=== PATIENT | female | born 1995 | race Caucasian/White ===

== ENCOUNTER 2017-06-14 16:08 | Emergency (ER) | payer OTHER ==
[~2017-06-14] VITALS: Ht 165.1 cm; Wt 68.0 kg
--- NOTE | 2017-06-14 16:20 | NUR ---
at the bedside
--- NOTE | 2017-06-14 16:25 | NUR ---
prescriptions and homegoing instructions given. pt is discharged
[2017-06-14 16:28] VITALS: BP 130/70
== END 2017-06-14 16:31 | disposition home or self-care (01) ==
LOC: ER 16:09
DX: H00.014 Hordeolum externum left upper eyelid (principal)
CPT/HCPCS: A4663

== ENCOUNTER 2018-01-07 11:03 | Emergency (ER) | payer OTHER ==
[~2018-01-07] VITALS: Ht 165.1 cm; Wt 68.0 kg
[2018-01-07 11:44] LABS: *BILIRUBIN,URIN NEGATIVE (NEGATIVE); *BLOOD, URINE NEGATIVE (NEGATIVE); *CLARITY,URINE CLEAR (CLEAR); *COLOR,URINE LIGHT YELLOW (YELLOW); *KETONES,URINE NEGATIVE (NEGATIVE); *PROTEIN,URINE NEGATIVE (NEGATIVE); *UROBILINOGEN,URINE 0.2 E.U./dl (NORMAL); LEUKOCYTE ESTERASE ,URINE 2+ (NEGATIVE); NITRITE, URINE NEGATIVE (NEGATIVE); PH,URINE 7.5 (5.0-8.0); UGLUCOSE NEGATIVE (NEGATIVE)
[2018-01-07] MEDS ORDERED: ONDANSETRON ODT 4 MG TAB.RAPDIS SL ONE (11:45)
[2018-01-07] MEDS ORDERED: CEFTRIAXONE 500 MG VIAL IM ONE (11:45)
[2018-01-07] MEDS ORDERED: IBUPROFEN 800 MG TABLET PO ONE (11:45)
[2018-01-07] MEDS ORDERED: AZITHROMYCIN 250 MG TABLET PO ONE (11:45)
[2018-01-07 11:47] LABS: *URINE HCG, QUAL POSITIVE (NEGATIVE)
[2018-01-07] MEDS ORDERED: CEFTRIAXONE 500 MG VIAL ONE (11:50)
[2018-01-07] MEDS ORDERED: ONDANSETRON ODT 4 MG TAB.RAPDIS ONE (11:50)
[2018-01-07] MEDS ORDERED: AZITHROMYCIN 250 MG TABLET ONE (11:50)
[2018-01-07] MEDS ORDERED: IBUPROFEN 800 MG TABLET ONE (11:50)
[2018-01-07] MEDS ORDERED: LIDOCAINE HCL 2% 20 ML VIAL ONE (11:50)
[2018-01-07 11:51] LABS: RBC,URINE 0-3 /HPF (0-3)
[2018-01-07 11:52] LABS: BACTERIA,URINE FEW /HPF (NONE SEEN); SQUAMOUS EPITHELIAL CELL,UR MODERATE /HPF (NONE SEEN)
[2018-01-07] MEDS ORDERED: LIDOCAINE HCL 1% 20 ML VIAL ONE (11:56)
--- NOTE | 2018-01-07 12:04 | NUR ---
LABS COMPLETED,MEDS ADMINISTERED, OPELVIC EXAM DONE. PT PRESENTLY AWAITING FOR [facility].
--- NOTE | 2018-01-07 12:54 | NUR ---
AMANDA TUCKER AT THE BEDSIDE.
--- NOTE | 2018-01-07 14:05 | NUR ---
MSE COMPLETED, PT D/C'D HOME, ACI/RX X2 GIVEN. PT GOT [id number] AND AMBULATESD W/O DIFF/TOOK ALL BELONGINGS.
[2018-01-07 14:16] VITALS: BP 120/68
[2018-01-11 13:07] LABS: *GC NAA Negative (Negative); *TRIC.VAG. NAA Negative (Negative)
== END 2018-01-07 14:05 | disposition home or self-care (01) ==
LOC: ER 11:03
DX: N71.9 Inflammatory disease of uterus, unspecified (principal)
CPT/HCPCS: 84703; 87491; A4663; J0696; J3490; Q0144; Q0162

== ENCOUNTER 2019-10-19 21:39 | Emergency (ER) | payer MEDICAID, OTHER ==
[~2019-10-19] VITALS: Ht 165.1 cm; Wt 63.5 kg
--- NOTE | 2019-10-19 22:50 | NUR ---
Dr. Lacey at bedside for MSE.
[2019-10-19] MEDS ORDERED: OXYCODONE/APAP 5-325 MG TABLET PO ONE (23:00)
[2019-10-19] MEDS ORDERED: OXYCODONE/APAP 5-325 MG TABLET ONE (23:17)
[2019-10-19 23:28] LABS: BASOPHILS % (AUTO) 0.3 % (0.0-2.0); EOSINOPHILS # (AUTO) 0.2 K/uL (0.0-0.7); EOSINOPHILS % (AUTO) 1.7 % (0.0-7.0); HEMATOCRIT 39.6 % (31.2-41.9); HEMOGLOBIN 13.1 g/dL (10.9-14.3); LYMPHOCYTES # (AUTO) 1.7 K/uL (20.0-40.0); LYMPHOCYTES % (AUTO) 14.8 % (20.5-51.5); MEAN CORPUSCULAR HEMOGLOBIN 28.7 uug (24.7-32.8); MEAN CORPUSCULAR HGB CONC 33 g/dL (32.3-35.6); MEAN CORPUSCULAR VOLUME 86.9 fL (75.5-95.3); MONOCYTES # (AUTO) 1.3 K/uL (2.0-10.0); MONOCYTES % (AUTO) 10.9 % (0.0-11.0); NEUTROPHILS # (AUTO) 8.4 K/uL (1.8-8.9); NEUTROPHILS % (AUTO) 72.3 % (38.5-71.5); PLATELET COUNT (AUTO) 223 K/uL (179-408); RED BLOOD CELL COUNT(AUTO) 4.56 MIL/uL (3.63-4.92); WHITE BLOOD COUNT (AUTO) 11.6 K/uL (3.8-11.8)
--- NOTE | 2019-10-19 23:29 | NUR ---
Pt provided urine sample, sent to lab.
[2019-10-19 23:38] LABS: CREATININE 0.8 mg/dL (0.6-1.3); POTASSIUM 3.6 mmol/L (3.5-5.1)
[2019-10-19] MEDS ORDERED: IV NORMAL SALINE 250 ML IV ONE (23:42)
[2019-10-19] MEDS ORDERED: IOHEXOL 300MG/ML 100 ML INFUS..BTL ONE (23:42)
[2019-10-19] MEDS ORDERED: SWABABLE VALVE TRANSFER SET EA MC ONE (23:42)
[2019-10-19 23:45] LABS: *URINE HCG, QUAL NEGATIVE (NEGATIVE)
--- NOTE | 2019-10-19 23:53 | NUR ---
Pt out of ER for CT.
--- NOTE | 2019-10-20 00:15 | NUR ---
Pt back to ER from CT.
[2019-10-20] MEDS ORDERED: IBUPROFEN 600 MG TABLET ONE (01:53)
[2019-10-20] MEDS ORDERED: IBUPROFEN 600 MG TABLET PO ONE (02:00)
[2019-10-20 02:01] VITALS: BP 110/72
--- NOTE | 2019-10-20 02:01 | NUR ---
Patient discharged to home in stable conditon. Written and verbal after care instructions given. Patient verbalizes understanding of instructions. Pt ambulated out of ER with steady gait, no acute signs of distress, VSS, all belongings taken.
== END 2019-10-20 02:02 | disposition home or self-care (01) ==
LOC: ER 21:45
DX: H60.92 Unspecified otitis externa, left ear (principal)
CPT/HCPCS: 36415; 70460; 80048; 84703; 85025; 99284; Q9967; A4663; J7050

== ENCOUNTER 2019-10-22 11:17 | Emergency (ER) | payer MEDICAID ==
[~2019-10-22] VITALS: Ht 165.1 cm; Wt 63.5 kg
--- NOTE | 2019-10-22 11:43 | NUR ---
Patient discharged to home in stable conditon. Written and verbal after care instructions given. Patient verbalizes understanding of instructions.
== END 2019-10-22 11:47 | disposition home or self-care (01) ==
LOC: ER 11:17
DX: H60.92 Unspecified otitis externa, left ear (principal)
CPT/HCPCS: A4663

== ENCOUNTER 2021-05-24 10:50 | Emergency (ER) | payer MEDICAID, OTHER ==
[~2021-05-24] VITALS: Ht 165.1 cm; Wt 74.8 kg
--- NOTE | 2021-05-24 11:11 | NUR ---
at bedside for assessment
[2021-05-24] MEDS ORDERED: ACET-2030 PO (11:18)
[2021-05-24] MEDS ORDERED: AMOX500T2 PO (11:18)
[2021-05-24] MEDS ORDERED: NEOM10SO7 OT (11:18)
[2021-05-24] MEDS ORDERED: IBUP-1957 PO (11:18)
--- NOTE | 2021-05-24 11:23 | NUR ---
Patient discharged to home in stable condition. Rx given, patient took all belongings, no sifns of acute distress noted, patient states she understands discharge instructions. Written and verbal after care instructions given. Patient verbalizes understanding of instructions. Stressed follow up or return to ER for worsening s/s.
[2021-05-24 11:26] VITALS: BP 123/89
== END 2021-05-24 11:22 | disposition home or self-care (01) ==
LOC: ER 10:50
DX: H65.192 Other acute nonsuppurative otitis media, left ear (principal); H60.502 Unspecified acute noninfective otitis externa, left ear
CPT/HCPCS: A4663

== ENCOUNTER 2022-02-03 11:16 | Emergency (ER) | payer OTHER ==
[~2022-02-03] VITALS: Ht 165.1 cm; Wt 79.4 kg
[~2022-02-03 11:16] MED LIST: ACET-2030 PO; AMOX500T2 PO; IBUP-1957 PO; NEOM10SO7 OT
--- NOTE | 2022-02-03 11:25 | NUR ---
Dr Norton at the bedside for MSE.
[2022-02-03] MEDS ORDERED: KETOROLAC TROMETHAMINE 30 MG INJ ONE (11:42)
[2022-02-03] MEDS ORDERED: ACETAMINOPHEN ES 500 MG TABLET ONE ×2 (11:42)
[2022-02-03] MEDS ORDERED: ACETAMINOPHEN 325 MG TABLET PO ONE (11:45)
[2022-02-03] MEDS ORDERED: KETOROLAC TROMETHAMINE 30 MG INJ IM ONE (11:45)
[2022-02-03 11:56] VITALS: BP 120/83
--- NOTE | 2022-02-03 12:00 | NUR ---
Patient discharged to home in stable condition. Written and verbal after care instructions given. Patient verbalizes understanding of instructions. Stressed follow up or return to ER for worsening s/s.
== END 2022-02-03 12:00 | disposition home or self-care (01) ==
LOC: ER 11:16
DX: G89.29 Other chronic pain (principal); M54.9 Dorsalgia, unspecified
CPT/HCPCS: 96372; 99283; J1885; A4663; A9150